=== PATIENT | male | born 1995 | race Caucasian/White ===

== ENCOUNTER 2017-04-28 15:52 | Emergency (ER) | payer MEDICAID, OTHER ==
[~2017-04-28] VITALS: Ht 157.5 cm; Wt 60.3 kg
[2017-04-28 15:58] VITALS: BP 119/73
[2017-04-28] MEDS ORDERED: MAALOX/HYOSCYAMINE/LIDOCAINE 45 ML BTL ONE (16:24)
[2017-04-28] MEDS ORDERED: FAMOTIDINE 20 MG TABLET ONE (16:24)
[2017-04-28] MEDS ORDERED: ONDANSETRON ODT 8 MG ONE (16:24)
[2017-04-28] MEDS ORDERED: ONDANSETRON ODT 8 MG PO ONE (16:30)
[2017-04-28] MEDS ORDERED: MAALOX/HYOSCYAMINE/LIDOCAINE 45 ML BTL PO ONE (16:30)
[2017-04-28] MEDS ORDERED: FAMOTIDINE 20 MG TABLET PO ONE (16:30)
== END 2017-04-28 18:37 | disposition home or self-care (01) ==
LOC: ED 17:16
DX: R19.7 Diarrhea, unspecified (principal); R11.2 Nausea with vomiting, unspecified; Z88.0 Allergy status to penicillin
CPT/HCPCS: 99284; Q0162

== ENCOUNTER 2017-07-12 08:58 | Emergency (ER) | payer MEDICAID ==
[~2017-07-12] VITALS: Ht 170.2 cm; Wt 58.6 kg
[2017-07-12 10:15] LABS: RAPID INFLUENZA A Negative (Negative); RAPID INFLUENZA B POSITIVE (Negative)
[2017-07-12] MEDS ORDERED: DEXAMETHASONE 4 MG TABLET ONE (11:00)
[2017-07-12] MEDS ORDERED: DEXAMETHASONE 4 MG TABLET PO ONE (11:00)
[2017-07-12 11:02] VITALS: BP 108/43
== END 2017-07-12 11:48 | disposition home or self-care (01) ==
LOC: ED 11:00
DX: J10.1 Influenza due to other identified influenza virus with other respiratory manifestations (principal); Z88.0 Allergy status to penicillin
CPT/HCPCS: 71046; 87400

== ENCOUNTER 2019-09-01 15:17 | Emergency (ER) | payer MEDICAID ==
[~2019-09-01] VITALS: Ht 170.2 cm; Wt 58.7 kg
[2019-09-01 15:58] VITALS: BP 105/57
[2019-09-01] MEDS ORDERED: METHOCARBAMOL 750 MG TABLET PO ONE (16:30)
[2019-09-01] MEDS ORDERED: KETOROLAC 30 MG/1 ML IM ONE (16:30)
[2019-09-01] MEDS ORDERED: KETOROLAC 30 MG/1 ML ONE (16:39)
[2019-09-01] MEDS ORDERED: METHOCARBAMOL 750 MG TABLET ONE (16:39)
--- NOTE | 2019-09-01 17:16 | NUR ---
Patient given discharge instructions and they have confirmed that they understand the instructions. Patient ambulatory with steady gait. Pt left with d/c paperwork, Rx, and all personal belongings.
== END 2019-09-01 17:19 | disposition home or self-care (01) ==
LOC: ED 17:00
DX: S39.012A Strain of muscle, fascia and tendon of lower back, initial encounter (principal); K64.4 Residual hemorrhoidal skin tags; X58.XXXA Exposure to other specified factors, initial encounter; Y93.89 Activity, other specified; Y92.89 Other specified places as the place of occurrence of the external cause; Y99.8 Other external cause status
CPT/HCPCS: 96372; 99283; J1885

== ENCOUNTER 2019-12-30 14:02 | Emergency (ER) | payer MEDICAID, OTHER ==
[~2019-12-30] VITALS: Ht 170.2 cm; Wt 59.5 kg
[2019-12-30 14:07] VITALS: BP 112/63
--- NOTE | 2019-12-30 15:45 | NUR ---
SPANISH INSTRUCTOR: PT AMBULATORY TO ROOM FROM LOBBY
[2019-12-30] MEDS ORDERED: HYDROcodone/APAP 5/325 TABLET PO ONE (17:00)
[2019-12-30] MEDS ORDERED: HYDROcodone/APAP 5/325 TABLET ONE (17:27)
--- NOTE | 2019-12-30 17:37 | NUR ---
Discharged despite recent narcotic administration as patient not naive to narcotics and not driving
== END 2019-12-30 17:40 | disposition home or self-care (01) ==
LOC: ED 17:30
DX: S42.021A Displaced fracture of shaft of right clavicle, initial encounter for closed fracture (principal); M54.2 Cervicalgia; V49.9XXA Car occupant (driver) (passenger) injured in unspecified traffic accident, initial encounter; Y93.89 Activity, other specified; Y92.488 Other paved roadways as the place of occurrence of the external cause; Y99.8 Other external cause status
CPT/HCPCS: 71046; 72050; 72072; 72110; 99284

== ENCOUNTER 2020-01-08 12:38 | Day surgery (SDC) | payer MEDICAID, OTHER ==
[~2020-01-08] VITALS: Ht 170.2 cm; Wt 58.7 kg
[~2020-01-08 12:38] MED LIST: BUPIVACAINE/PF-EPI 0.5% 1:200K ONE
[2020-01-08 13:20] VITALS: BP 100/53
[2020-01-08] MEDS ORDERED: CHLORHEXIDINE 15 ML UDC MM ONE (13:30)
[2020-01-08] MEDS ORDERED: HYDR-3240 PO (14:02)
[2020-01-08] MEDS ORDERED: MIDAZOLAM 1 MG/ML, 2ML ONE (14:35)
[2020-01-08] MEDS ORDERED: FENTANYL PF 250 MCG/5ML ONE (14:35)
[2020-01-08] MEDS ORDERED: DEXAMETHASONE 4 MG/ML, 1ML ONE ×2 (14:37→16:16)
[2020-01-08] MEDS ORDERED: SUCCINYLCHOLINE 20 MG/ML, 10ML ONE (14:56)
[2020-01-08] MEDS ORDERED: CEFAZOLIN 1,000 MG ONE (14:56)
[2020-01-08] MEDS ORDERED: PROPOFOL 10 MG/ML, 20ML ONE (16:16)
[2020-01-08] MEDS ORDERED: ONDANSETRON 2MG/ML, 2ML ONE ×2 (16:16)
[2020-01-08] MEDS ORDERED: hydrALAzine 20 MG/ML, 1ML IV PRN (16:30)
[2020-01-08] MEDS ORDERED: PROMETHAZINE 25 MG/ML, 1ML IVPush PRN (16:30)
[2020-01-08] MEDS ORDERED: MIDAZOLAM 1 MG/ML, 2ML IV PRN (16:30)
[2020-01-08] MEDS ORDERED: OXYcodone 5 MG/5 ML ORAL.SOL UDC PO PRN (16:30)
[2020-01-08] MEDS ORDERED: DIPHENHYDRAMINE 50 MG/ML, 1ML IVPush PRN (16:30)
[2020-01-08] MEDS ORDERED: HYDROmorphone 1 MG/ML, 1ML INJ IVPush PRN (16:30)
[2020-01-08] MEDS ORDERED: ONDANSETRON 2MG/ML, 2ML IVPush PRN (16:30)
[2020-01-08] MEDS ORDERED: ALBUTEROL SULFATE 2.5 MG/3 ML NPPB PRN (16:30)
[2020-01-08] MEDS ORDERED: EPHEDRINE 50 MG/ML, 1ML IVPush PRN (16:30)
[2020-01-08] MEDS ORDERED: MEPERIDINE/PF 25MG/0.5ML IVPush PRN (16:30)
[2020-01-08] MEDS ORDERED: PROMETHAZINE 12.5 MG SUPP PR PRN (16:30)
[2020-01-08] MEDS ORDERED: LABETALOL 5MG/ML, 20ML IV PRN (16:30)
[2020-01-08] MEDS ORDERED: ACETAMINOPHEN 325 MG TABLET PO PRN (16:30)
[2020-01-08] MEDS ORDERED: DIAZEPAM 5 MG/ML, 2ML IVPush PRN (16:30)
[2020-01-08] MEDS ORDERED: FENTANYL PF 100 MCG/2ML IV PRN (16:30)
[2020-01-08] MEDS ORDERED: FENTANYL PF 100 MCG/2ML ONE (16:52)
[2020-01-08] MEDS ORDERED: MEPERIDINE/PF 25MG/ML,1ML ONE (16:53)
[2020-01-08] MEDS ORDERED: OXYcodone 5 MG/5 ML ORAL.SOL UDC ONE (16:54)
== END 2020-01-08 18:46 | disposition home or self-care (01) ==
LOC: OR 12:38 → 4NE 17:40 → OUT 18:46
PROVIDERS: ATTEND Orthopaedic Surgery
DX: S42.001P Fracture of unspecified part of right clavicle, subsequent encounter for fracture with malunion (principal); X58.XXXD Exposure to other specified factors, subsequent encounter; Z11.59 Encounter for screening for other viral diseases; Z88.0 Allergy status to penicillin; Z88.1 Allergy status to other antibiotic agents; Z79.899 Other long term (current) drug therapy; F12.90 Cannabis use, unspecified, uncomplicated; Z72.89 Other problems related to lifestyle
CPT/HCPCS: 23515; 73000; 87635; C1713; J0330; J0690; J1100; J2175; J2250; J2405; J2704; J3010; 76000; G0378